=== PATIENT | male | born 1970 | race Caucasian/White ===

== ENCOUNTER 2018-01-18 18:00 | Emergency (ER) | payer MEDICAID ==
[~2018-01-18] VITALS: Ht 170.2 cm; Wt 73.5 kg
[2018-01-18 18:13] VITALS: BP 119/77
--- NOTE | 2018-01-18 18:35 | NUR ---
PATIENT PRESENTS TO ED WITH COMPLAINTS OF N/V/D X 4 DAYS. PATIENT STATES HE TOOK SOME IMMODIUM TO CONTROL DIARRHEA BUT IT HAS NOT HELPED. PATIENT ALSO REPORTS HE WENT TO [facility] YESTERDAY FOR THE SAME COMPLAINT AND WAS RX A MEDICATION THAT HAS NOT HELPED. SKIN IS PINK/WARM/DRY; AAOX4 WITH EVEN AND STEADY GAIT; LUNGS CLEAR BL; HR EVEN AND REGULAR; PT DENIES ANY FEVER, CP, SOB, OR COUGH AT THIS TIME; PATIENT STATES PAIN OF 8/10 AT THIS TIME; VSS; PATIENT POSITIONED FOR COMFORT; HOB ELEVATED; BEDRAILS UP X1; BED DOWN. ER MD MADE AWARE OF PT STATUS.
[2018-01-18] MEDS ORDERED: NACL 0.9% 1,000 ML IV SCH (18:56)
[2018-01-18] MEDS ORDERED: PANTOPRAZOLE 40 MG INJ VIAL IVP ONE (19:00)
[2018-01-18] MEDS ORDERED: MORPHINE SULFATE 2 MG/ML SYR IVP ONE (19:00)
[2018-01-18] MEDS ORDERED: ONDANSETRON 4 MG/2 ML VIAL IVP ONE (19:00)
--- NOTE | 2018-01-18 19:11 | NUR ---
REPORT GIVEN TO JAVAD JOHNSON
--- NOTE | 2018-01-18 19:15 | NUR ---
Report received from Seble FARNSWORTH. Pt found resting in [facility] bed 11. NAD noted. at bedside. Patient noted febrile. No medications taken at home [employer]. No meds given in triage. Pt AOX4, icelandic speaking. VSS at this time. All needs addressed.
[2018-01-18 19:24] LABS: BASOPHILS % (AUTO) 0.4 % (0.0-2.0); HEMOGLOBIN 15.7 g/dL (12.0-18.0); LYMPHOCYTES % (AUTO) 10.7 % (20.5-51.1); MEAN CORPUSCULAR HEMOGLOBIN 30 pg (27-31); MEAN CORPUSCULAR HGB CONC 34 g/dL (33-37); MEAN CORPUSCULAR VOLUME 88.3 fL (80-94); MONOCYTES # (AUTO) 1.2 K/uL (0.8-1.0); MONOCYTES % (AUTO) 11.8 % (1.7-9.3); NEUTROPHILS # (AUTO) 7.6 K/uL (1.8-7.7); NEUTROPHILS % (AUTO) 77.1 % (42.2-75.2); PLATELET COUNT (AUTO) 218 K/uL (140-450); RED CELL DISTRIBUTION WIDTH 13.2 % (11.6-13.7); WHITE BLOOD COUNT (AUTO) 9.8 K/uL (4.8-10.8)
[2018-01-18] MEDS ORDERED: ACETAMINOPHEN EXTRA STRENGTH 500 MG TAB PO ONE (19:40)
[2018-01-18 19:43] LABS: ALBUMIN 3.6 g/dL (3.4-5.0); ANION GAP 11.9 (8-16); CARBON DIOXIDE 26.2 mmol/L (21-32); CREATININE 0.9 mg/dL (0.7-1.3); POTASSIUM 3.1 mmol/L (3.5-5.1); TOTAL BILIRUBIN 0.5 mg/dL (0.0-1.0)
[2018-01-18] MEDS ORDERED: ACETAMINOPHEN EXTRA STRENGTH 500 MG TAB ONE (19:43)
--- NOTE | 2018-01-18 19:44 | NUR ---
Dr. Heck evaluating patient at bedside.
--- NOTE | 2018-01-18 21:00 | NUR ---
Pt resting quietly in bed. NAD noted. at the bedside. VSS.
[2018-01-18] MEDS ORDERED: POTASSIUM CHLORIDE 10 MEQ TABER PO ONE (21:05)
[2018-01-18 21:26] LABS: APPEARANCE,URINE CLEAR (CLEAR); BILIRUBIN,URINE NEGATIVE (NEGATIVE); BLOOD, URINE 1+ (NEGATIVE); COLOR,URINE YELLOW (YELLOW); LEUKOCYTE ESTERASE ,URINE NEGATIVE (NEGATIVE); NITRITE, URINE NEGATIVE (NEGATIVE); UGLUCOSE NEGATIVE (NEGATIVE)
[2018-01-18 21:50] LABS: RBC,URINE 0-5 (RARE) /HPF (0-5); WBC,URINE 0-5 (RARE) /HPF (0-5)
[2018-01-18 22:10] VITALS: BP 106/70
--- NOTE | 2018-01-18 22:10 | NUR ---
Patient discharged with v/s stable. Written and verbal after care instructions given and explained. Patient alert, oriented and verbalized understanding of instructions. Ambulatory with steady gait. All questions addressed prior to discharge. ID band removed. Patient advised to follow up with PMD. Rx of Protonix 40mg, and Zofran ODT 4mg given. Patient educated on indication of medication including possible reaction and side effects. Opportunity to ask questions provided and answered.
== END 2018-01-18 22:10 | disposition home or self-care (01) ==
LOC: MED 18:00
DX: F10.10 Alcohol abuse, uncomplicated (principal); R11.10 Vomiting, unspecified; R19.7 Diarrhea, unspecified; R10.84 Generalized abdominal pain
CPT/HCPCS: 36415; 80053; 81001; 83690; 85025; 93005; 96374; 96375; 99285; C9113; J2270; J2405